=== PATIENT | male | born 2000 | race Caucasian/White ===

== ENCOUNTER 2024-02-29 14:40 | Emergency (ER) | payer SELFPAY ==
[2024-02-29] VITALS (7 sets, daily range): BP systolic 102–136; BP diastolic 61–79; PULSE 66–93; RESP 13–17; TEMP 36.6; O2SAT 97–100; BMI 20.5
--- NOTE | 2024-02-29 14:38 | ECG_ITS ---
APPROVED REPORT Exam: Resting ECG HR:79 bpm ECG Measurements Heart Rate 79 AXES [place] 133 P 79 QRSd 92 QRS 86 QT 335 T 81 QTc 370 Conclusion SINUS RHYTHM INCOMPLETE RIGHT BUNDLE BRANCH BLOCK [90+ ms QRS DURATION, TERMINAL R IN V1/V2, 40+ ms S IN I/aVL/V4/V5/V6] Electronically signed by : MELY IRIZARRY, 02/29/2024 15:56:32
--- NOTE | 2024-02-29 15:10 | XR_ITS ---
FINAL REPORT CLINICAL HISTORY: cp when breathing FINDINGS: No acute pulmonary opacity is present. There is no evidence of effusion or pneumothorax. Mediastinum is unremarkable. Heart size is normal. IMPRESSION: No acute abnormality. Reviewed, Interpreted and Dictated by Mp Garcia MD Transcribed by Rocio Berg Authenticated and . [facility] [place]
[2024-02-29 15:25] LABS: Chloride 102 mmol/L (98-107)
[2024-02-29 15:26] LABS: Potassium 3.5 mmoL/L (3.5-5.1); Sodium 137 mmol/L (136-145)
[2024-02-29] MEDS: KETOROLAC 30MG/ML VIAL 15 MG IV (15:27)
[2024-02-29 15:28] LABS: Alanine Aminotransferase 21 U/L (12-78); Alkaline Phosphatase 43 U/L (38-126); Aspartate Amino Transferase 32 U/L (17-59); Bilirubin,Total 0.7 mg/dl (0.2-1.3); Blood Urea Nitrogen 10 mg/dl (9-20); Creatinine Clearance Estimated 112 mL/min (50-200); Estimated Glomerular Filt Rate 106 ml/min (>60); GFR (African American) 128 ML/MIN (>60)
[2024-02-29 15:29] LABS: Albumin/Globulin Ratio 1.6 (1.1-1.8); Anion Gap 13.5 mEq/L (5-15); Calcium 9.8 mg/dl (8.4-10.2); Carbon Dioxide 25 mmol/L (22.0-30.0); Globulin 3.1 g/dL (1.3-3.2); Glucose 82 mg/dl (74-100); Total Protein,Serum 8.1 g/dl (6.3-8.2)
[2024-02-29 15:30] LABS: Basophils # 0.1 K/mm3 (0-0.2); Basophils % 1.1 % (0.1-2.0); Eosinophils # 0.1 K/mm3 (0.0-0.4); Eosinophils % 0.9 % (0.1-12.0); Hematocrit 49.4 % (42.0-52.0); Hemoglobin 17.1 g/dL (14.1-18.0); Lymphocytes # 1.7 K/mm3 (0.7-4.5); Lymphocytes % 29.2 % (10-50); Mean Corpuscular HGB Conc 34.5 g/dL (31.8-35.4); Mean Corpuscular Hemoglobin 29.4 pg (27.0-31.2); Mean Corpuscular Volume 85.3 fl (80-94); Mean Platelet Volume 6.6 fl (7.4-10.4); Monocytes # 0.4 K/mm3 (0.1-1.0); Monocytes % 6.3 % (1.7-9.3); Neutrophils # 3.7 K/mm3 (1.8-7.8); Neutrophils % 62.5 % (37.0-80.0); Platelet Count 280 K/mm3 (142-424); Red Cell Distribution Width 12.7 % (11.5-17.5); White Blood Count 5.9 K/mm3 (4.8-10.8)
--- NOTE | 2024-02-29 15:30 | HMH.EDCP ---
Discharge Plan Disposition Patient Disposition: Home, Self-Care Chief Complaint: Chest Pain Referrals Follow up/Referrals: Provider,Referral, MD [Primary Care Provider] - See instructions Activity Restrictions/Add. Instructions Additional Instructions/Restrictions: Call your family doctor to establish care for this visit to the emergency department and schedule follow-up within 48 hours to ensure improvement. If you have any worsening of your condition or any other concerning signs or symptoms, return to the emergency department or your primary care doctor for further evaluation. Clinical Impressions Clinical Impression: Chest pain Discharge ED Provider: Jeffery Vargas [facility] General Chief Complaint: Chest Pain Stated Complaint: chest pain Time Seen by Provider: 02/29/24 15:10 Mode of Arrival: Ambulatory Source of Information: Patient Limitations: No Limitations Description of Symptoms (Recalled from ER Triage Doc. by RN): Patient reports chest pain when breathing that began at 11am today. States the pain increased approx at 2pm and was worse when he moved his arms. History of Present Illness HPI narrative: Please note that above description of symptoms, in this electronic medical record under categorization of recalled from ER triage doctor by RN are reflective of an initial nursing assessment, however, is not reflective of my full history and physical exam that was personally taken and clarified. Consequentially, this preceding description of symptoms, which may include the patient's categorized chief complaint in the EMR, do not reflect my personal clinical impression, and the ultimate description of history of present illness and patient stated complaints should be deferred to this section of the note. Unless stated otherwise or congruent with this section of the note, additional signs, symptoms, or incongruence should be interpreted as inaccurate with my clinical impression. Related Data Allergies Allergy/AdvReac Type Severity Reaction Status Date / Time No Known Allergies Allergy Verified 02/29/24 14:44 [facility] Disclaimer: The information contained in this section may have been updated after the patient was seen, as this information can be updated by other users. Social History Smoking Status: Current every day smoker alcohol intake: never current occupational status: employed Travel in the last 8 weeks: None ROS Obtained: Yes All systems reviewed & no additional complaints except as documented Physical Exam General General appearance: alert Neck Neck exam: Present trachea midline Chest Chest inspection: Present normal inspection and symmetric chest wall rise Respiratory Respiratory exam: Present normal lung sounds bilaterally; Absent respiratory distress, wheezes, stridor, accessory muscle use or prolonged expiratory phase Cardiovascular Cardiovascular exam: Present regular rate, normal rhythm and other (Intermittent PVCs) Abdominal Exam Abdominal exam: Present soft; Absent distention, tenderness, Miranda's sign, Rovsing's sign or tenderness at McBurney's Point Extremities Exam Extremities exam: Absent edema Neurological Exam Neurological exam: Present alert, oriented X3 and CN II-XII intact Skin Skin exam: Present warm and dry; Absent cyanosis, diaphoresis or pallor HEART Score HEART Score HEART Score assessment performed?: Yes HEART Score: 0 Procedures Limited Ultrasound Indication:: Limited cardiac ultrasound Indication: Substernal chest pain Identified cardiac views: -Cardiac parasternal long axis -Cardiac parasternal short axis Findings: -Cardiac activity present -Gross wall motion normal -Pericardial effusion absent -Right heart strain absent -EPSS less than 5 mm -No evidence of septal hypertrophy Impression: Normal cardiac ultrasound Images were saved to permanent archive The study was technically adequate CPT: 58656 This study was performed by me, and I personally interpreted all images/videos. Based on my clinical judgement, these images were adequate and did not necessitate further imaging. Critical Care Critical Care Time Critical Care Time: No Medical Decision Making Medical Records Medical records reviewed: Yes I reviewed the patient's medical records. Armando Inquiry Pt receiving controlled substance: No Armando was queried for this patient: No Vital Signs Vital Signs: 02/29/24 14:40 02/29/24 15:00 02/29/24 15:30 Temperature 97.8 F Temperature Source Oral Pulse Rate 74 Pulse Rate [Radial] 93 H Respiratory Rate 16 13 Blood Pressure 114/70 112/75 Blood Pressure [Right Arm] 136/79 Blood Pressure Mean 86 Blood Pressure Mean [Right Arm] 98 Blood Pressure Source [Right Arm] Automatic Cuff Blood Pressure Position [Right Arm] Sitting 02 Sat by Pulse Oximetry 100 97 Oxygen Delivery Method Room Air Room Air 02/29/24 16:00 02/29/24 16:30 02/29/24 17:00 Temperature Temperature Source Pulse Rate 68 71 66 Pulse Rate [Radial] Respiratory Rate 13 15 17 Blood Pressure 102/68 L 102/61 L 108/70 L Blood Pressure [Right Arm] Blood Pressure Mean 77 73 77 Blood Pressure Mean [Right Arm] Blood Pressure Source [Right Arm] Blood Pressure Position [Right Arm] 02 Sat by Pulse Oximetry 100 97 98 Oxygen Delivery Method Room Air Room Air Room Air Lab Data Labs: Lab Results 02/29/24 14:44: WBC 5.9, RBC 5.80, Hgb 17.1, Hct 49.4, MCV 85.3, MCH 29.4, MCHC 34.5, RDW 12.7, Plt Count 280, MPV 6.6 L, Neut % (Auto) 62.5, Lymph % (Auto) 29.2, Hill % (Auto) 6.3, Eos % (Auto) 0.9, Baso % (Auto) 1.1, Neut # (Auto) 3.7, Lymph # (Auto) 1.7, Hill # (Auto) 0.4, Eos # (Auto) 0.1, Baso # (Auto) 0.1, D-Dimer < 0.25, Sodium 137, Potassium 3.5, Chloride 102, Carbon Dioxide 25, Anion Gap 13.5, BUN 10, Creatinine 0.90, Estimated Creat Clear 112, Estimated GFR 106, Est GFR ( Amer) 128, Glucose 82, Calcium 9.8, Total Bilirubin 0.7, AST 32, ALT 21, Alkaline Phosphatase 43, Troponin I < 0.01, Total Protein 8.1, Albumin 5.0, Globulin 3.1, Albumin/Globulin Ratio 1.6 02/29/24 17:14: Troponin I < 0.01 02/29/24 14:44 02/29/24 14:44 Response Orders (Tests/Meds): ED MEDICATIONS Discontinued Medications Generic Name Dose Route Start Last Admin Trade Name Freq PRN Reason Stop Dose Admin Ketorolac Tromethamine 15 mg 02/29/24 15:10 02/29/24 15:27 Ketorolac 30mg/Ml Vial IV 02/29/24 15:11 15 mg ONCE ONE Administration ORDERS Category Date Time Status POCUS Point of Care (ER Only) Stat Exams 02/29/24 15:19 Completed XR chest portable Stat Exams 02/29/24 15:10 Completed Complete Blood Count Auto Diff Stat Lab 02/29/24 14:44 Completed Comprehensive Metabolic Panel Stat Lab 02/29/24 14:44 Completed D-Dimer Stat Lab 02/29/24 14:44 Completed Troponin I Q3H Lab 02/29/24 14:44 Completed Troponin I Q3H Lab 02/29/24 17:14 Completed Troponin I Q3H Lab 02/29/24 21:15 Ordered MDM Narrative Medical Decision Narrative: 23-year-old male With no medical history presenting with chest pain. Patient states that chest pain started around 11 AM today, 02/28. He is not doing anything in particular or exertional. States that it intensified until 2 PM, has gotten better since then. Currently substernal, radiates to both shoulders, made worse with deep inspiration. No cough, fevers, chills, recent travel, pain like this in the past, syncope, neurologic deficits. He states that the pain is also made worse when he raises both of his shoulders, but has never injured either of his shoulders. Has not noticed anything that makes it better or worse, is just getting better on its own. History was obtained via conversation with patient. On arrival, patient hemodynamically stable, alert, oriented x4, appropriate, GCS 15, moving all extremities spontaneously, pupils equal and reactive to light. Full physical exam performed and significant for very well-appearing male no acute distress. Nontachycardic, normotensive, saturating 100% on room air. Lungs are clear to auscultation bilaterally anterior and posteriorly, cardiac exam normal other than intermittent PVCs. Pulses are equal and symmetric in upper and lower extremities. Differential includes pleurisy, pericarditis, myocarditis, chest wall pain, costochondritis, ACS, CA, PE, pneumothorax, among others. Patient was given Toradol 15 mg IV for symptomatic management and correction of underlying abnormalities. Workup independently interpreted and significant for negative initial troponin. Dimer negative. Nonactionable CBC or chemistry. Chest x-ray without acute cardiopulmonary space disease. See radiology read for full review of final results. [id number] ultrasound without abnormal cardiac findings. Independent interpretation of EKG shows sinus rhythm 79 beats a minute without ST or T wave changes concerning for acute schema. Incomplete right bundle branch block. VA 133, QRS 92, QTc 370. Wilson normal. Patient placed on continuous cardiac monitoring and continuous pulse ox with initial blood pressure 136/79, heart rate 93, saturation 100% on room air. Heart score 0. Patient was placed in observation beginning at 3 PM in order to rule out evolving CA with delta troponins and other labs and determine need for admission versus home-going. The patient was provided serial exams, ultrasound, cardiac monitoring while awaiting results. Independent interpretation of results demonstrated negative delta troponin. On reevaluation, patient still without symptoms at this time. At this time, I feel patient is appropriate for discharge. Total observation time 3 hours. Ballistics Expert Forensic disclaimer Much of this encounter note is an electronic fender mechanic apprentice spoken language to printed text. Electronic fender mechanic apprentice of the spoken language may permit errors. Although I have reviewed the note, some errors may still exist.
--- OUTSIDE RECORDS SUMMARY | 2024-02-29 15:44 | XMS_ITS | Continuity of Care Document ---
Author Name Unknown Address [address], [place] [id number] Organization [facility] Phone Care Team Providers Care Paper Cutter Name Role Phone NORMA KHALIL Primary Attending NORMA KHALIL Admitting NO, FAMILY P Primary Care NORMA KHALIL Unavailable ALLERGIES AND ADVERSE REACTIONS ALLERGIES AND ADVERSE REACTIONS Code System Allergy Substance Adverse Reaction Date Reaction (Severity) Comment Status Reported By Updated By No Known Allergies [id number] on August 18, 2023 10:52:38 PM [facility] MEDICATIONS HOME MEDICATIONS Status RXNORM Medication Dose Route Frequency Dates Comments R eported By Updated By Patient not on Self-Medications [id number] on August 18, 2023 10:52:38 PM [facility] DISCHARGE MEDICATIONS Status RXNORM Medication Dose Route Frequency Dates Comments Physic danny Updated By No Discharge Medication Info rmation Available INPATIENT MEDICATIONS Status RXNORM Medication Dose Route Frequency Rate Quantity Dates Comments Physician Updated By Bandar inued [id number] ibuprofen (MOTRIN) 400 MG TABS 400.0 MG BY MOUTH ONE TIME ONLY Start: [facility] er 2022 11:11: 00 PM [place] End: [facility] er 2022 11:11: 00 PM [facility] INTER[facility] ED on August 18, 2023 11:11:00 PM [place] Discont inued [id number] ACETAMINOPH EN 325 MG TABS 325.0 MG BY MOUTH ONE TIME ONLY Start: [facility] er 2022 11:11: 00 PM [place] End: [facility] 11[facility]11: 00 [facility] on August 18, 2023 11:11:00 PM [place] SOCIAL HISTORY SOCIAL HISTORY SNOMED-CT Social History Element Description Effective Dates Offered Cessation Comment UpdatedBy [id number] Smoking Status Unknown If Ever Smoked SOCIAL HISTORY - Gender Sex: Male SOCIAL HISTORY - Sexual Behavior Sexual Orientation Gender Identity SNOMED-CT Description SNO MED -CT Description Activity Level No of Partners Partner Type UpdatedBy Information is not available VITAL SIGNS PATIENT VITAL SIGNS This section displays the mo st recent value for each vital sign as of August 20, 2023 1:00:15 PM UTC Loinc Code Vital Sign Activity Date Result Updated By 8310-5 Body temperature August 18 10:46:00 PM UTC 98.1 [degF] [id number] on August 18, 2023 10:49:23 PM UTC 8462-4 Diastolic blood pressure August 18, 2023 10:46:00 PM UTC 67.0 mm[Hg] [id number] on August 18, 2023 10:49:23 PM UTC 8867-4 Heart rate August 18 10:46:00 PM UTC 64 /min [id number] on August 18, 2023 10:49:23 PM UTC 76094-5 Oxygen saturation in Arterial blood by Pulse oximetry August 18, 2023 10:46:00 PM UTC 100.0 % [id number] on August 18, 2023 10:49:23 PM UTC 9279-1 Respiratory rate August 18 10:46:00 PM UTC 18 /min [id number] on August 18, 2023 10:49:23 PM UTC 8480-6 Systolic blood pressure August 18, 2023 10:46:00 PM UTC 127.0 mm[Hg] [id number] on August 18, 2023 10:49:23 PM UTC PEDIATRIC GROWTH CHART - VITAL SIGNS This section displays Head C ircumference Percentile, Weight for Length Percentile and BMI Percentile Loinc Code Pediatric Measure Age (Months) Result Updat ed By No Pediatric Growth Chart Pe rcentile Information Available. HEALTH CONCERNS Problems Concern Status Health Concern problem infor mation not available. Smoking Status Status Years Used Consumed packs p er day Health Concern smoking histo ry information not available. Family History Concern Status Health Concern family histor y information not available. ENCOUNTERS ENCOUNTER INFORMATION Reason for Visit MIGRAINE Admission August 18, 2023 10:35:00 PM [facility] [address] [address] Discharge August 18, 2023 11:20:00 PM [facility] C DISCHARGED TO HOME OR SELF CARE ENCOUNTER DIAGNOSES Notes information is not anabell ilable. Code System Diagnosis Onset Date Diagnosis information is not available. 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, OTHER TOBACCO PRODUCT, UNCOMPLICATED [id number] on August 20, 2023 12:59:42 PM [facility] CARE TEAM Care Paper Cutter Role NORMA KHALIL Primary Attending NORMA KHALIL Admitting FAMILY NO Primary Care NORMA KHALIL Referring CARE TEAM CARE natural science curator Role on Team Status Start Date End Date Update d By REMI GREEN DO Referring normal August 11:07:09 PM [facility] August 18, 2023 5:00:00 AM [facility] [id number] on August 18, 2023 11:07:09 PM [facility] REMI GREEN DO Attending normal August 11:07:09 PM [facility] August 18, 2023 5:00:00 AM [facility] [id number] on August 18, 2023 11:07:09 PM [facility] REMI GREEN DO Admitting normal August 11:07:09 PM [facility] August 18, 2023 5:00:00 AM [facility] [id number] on August 18, 2023 11:07:09 PM [facility] NO FAMILY PHYSICIAN PCP normal August 18, 2023 10:36:35 PM [facility] August 18, 2023 5:00:00 AM [facility] [id number] on August 18, 2023 11:07:09 PM [facility]
--- OUTSIDE RECORDS SUMMARY | 2024-02-29 15:44 | XMS_ITS | Continuity of Care Document ---
Author Name Unknown Address [address], [place] [id number] Organization [facility] Phone Care Team Providers Care Linoleum Tile Layer Name Role Phone NORMA KHALIL Primary Attending NORMA KHALIL Admitting NO, FAMILY P Primary Care NORMA KHALIL Unavailable ALLERGIES AND ADVERSE REACTIONS ALLERGIES AND ADVERSE REACTIONS Code System Allergy Substance Adverse Reaction Date Reaction (Severity) Comment Status Reported By Updated By No Known Allergies [id number] on August 18, 2023 10:52:38 PM [facility] MEDICATIONS HOME MEDICATIONS Status RXNORM Medication Dose Route Frequency Dates Comments R eported By Updated By Patient not on Self-Medications [id number] on August 18, 2023 10:52:38 PM [facility] DISCHARGE MEDICATIONS Status RXNORM Medication Dose Route Frequency Dates Comments Physic danny Updated By No Discharge Medication Info rmation Available INPATIENT MEDICATIONS Status RXNORM Medication Dose Route Frequency Rate Quantity Dates Comments Physician Updated By Bandar inued [id number] ibuprofen (MOTRIN) 400 MG TABS 400.0 MG BY MOUTH ONE TIME ONLY Start: [facility] er 2022 11:11: 00 PM [place] End: [facility] er 2022 11:11: [address] [facility] INTERFAC ED on August 18, 2023 11:11:00 PM [place] Discont inued [id number] ACETAMINOPH EN 325 MG TABS 325.0 MG BY MOUTH ONE TIME ONLY Start: [facility] er 2022 11:11: 00 PM [place] End: [facility] er [facility] 11:11: 00 [facility] on August 18, 2023 11:11:00 PM [facility] SOCIAL HISTORY SOCIAL HISTORY SNOMED-CT Social History Element Description Effective Dates Offered Cessation Comment UpdatedBy [id number] Smoking Status Unknown If Ever Smoked SOCIAL HISTORY - Gender Sex: Male SOCIAL HISTORY - Sexual Behavior Sexual Orientation Gender Identity SNOMED-CT Description SNO MED -CT Description Activity Level No of Partners Partner Type UpdatedBy Information is not available VITAL SIGNS PATIENT VITAL SIGNS This section displays the mo st recent value for each vital sign as of August 19, 2023 12:20:07 AM UTC Loinc Code Vital Sign Activity Date Result Updated By 8310-5 Body temperature August 18 10:46:00 PM UTC 98.1 [degF] [id number] on August 18, 2023 10:49:23 PM UTC 8462-4 Diastolic blood pressure August 18, 2023 10:46:00 PM UTC 67.0 mm[Hg] [id number] on August 18, 2023 10:49:23 PM UTC 8867-4 Heart rate August 18 10:46:00 PM UTC 64 /min [id number] on August 18, 2023 10:49:23 PM UTC 56818-7 Oxygen saturation in Arterial blood by Pulse oximetry August 18, 2023 10:46:00 PM UTC 100.0 % [id number] on August 18, 2023 10:49:23 PM UTC 9279-1 Respiratory rate August 18 10:46:00 PM UTC 18 /min [id number] on August 18, 2023 10:49:23 PM UTC 8480-6 Systolic blood pressure August 18, 2023 10:46:00 PM UTC 127.0 mm[Hg] [id number] on August 18, 2023 10:49:23 PM UTC [...] August 18, 2023 10:35:00 PM [facility] [address] [address] Discharge August 18, 2023 11:20:00 PM [facility] C DISCHARGED TO HOME OR SELF CARE ENCOUNTER DIAGNOSES Notes information is not anabell ilable. Code System Diagnosis Onset Date Diagnosis information is not available. ABSTRACT DIAGNOSES Code System Diagnosis Updated By Abstract Diagnosis informati on is not available. CARE TEAM Care Linoleum Tile Layer Role NORMA KHALIL Primary Attending NORMA KHALIL Admitting FAMILY NO Primary Care NORMA KHALIL Referring CARE TEAM CARE flat folder Role on Team Status Start Date End Date Update d By REMI GREEN DO Referring normal August 11:07:09 PM [facility] August 18, 2023 11:20:00 PM [facility] [id number] on August 18, 2023 11:07:09 PM [facility] REMI GREEN DO Attending normal August 11:07:09 PM [facility] August 18, 2023 11:20:00 PM [facility] [id number] on August 18, 2023 11:07:09 PM [facility] REMI GREEN DO Admitting normal August 11:07:09 PM [facility] August 18, 2023 11:20:00 PM [facility] [id number] on August 18, 2023 11:07:09 PM [facility] NO FAMILY PHYSICIAN PCP normal August 18, 2023 10:36:35 PM [facility] August 18, 2023 11:20:00 PM [facility] [id number] on August 18, 2023 11:07:09 PM [facility]
[2024-02-29 15:46] LABS: Troponin I < 0.01 ng/ml (0.00-0.034)
[2024-02-29 15:54] LABS: D-Dimer < 0.25 ug/mL (0.0-0.5)
[2024-02-29 17:45] LABS: Troponin I < 0.01 ng/ml (0.00-0.034)
== END 2024-02-29 17:55 | disposition home or self-care (01) ==
PROVIDERS: Emergency Provider Emergency Medicine
DX: R07.1 Chest pain on breathing (principal); F17.210 Nicotine dependence, cigarettes, uncomplicated
CPT/HCPCS: 71045; 80053; 84484; 85025; 85378; 93005; 96374; 99285; J1885